=== PATIENT | male | born 1980 | race Caucasian/White ===

== ENCOUNTER 2024-03-02 14:46 | Emergency (ER) | payer OTHER ==
[~2024-03-02] VITALS: Ht 170.2 cm; Wt 79.0 kg
[2024-03-02 14:50] VITALS: O2SAT 96
[2024-03-02 16:54] VITALS: BP 124/69; PULSE 77; RESP 16; TEMP 36.61404; O2SAT 96
[2024-03-02] MEDS ORDERED: ACETAMINOPHEN 325MG TABLET PO ONE (17:45)
== END 2024-03-02 18:12 | disposition left against medical advice (07) ==
LOC: ER 14:58
DX: H57.13 Ocular pain, bilateral (principal); Z53.21 Procedure and treatment not carried out due to patient leaving prior to being seen by health care provider